=== PATIENT | male | born 1960 | race Caucasian/White ===

== ENCOUNTER → 2016-09-12 | Outpatient (CLI) | payer OTHER ==
[~2016-09-12] MED LIST: ALTA10CA10 PO; ASPI81TA5 PO; CHOL1CAP2 PO; CLON.5 PO; GUAI600T11 PO; METO50TA PO; NIAS1000 PO; OMEG1CAP53 PO; PLAV75TA29 PO; ROSU1TAB6 PO; TRAM50TA PO; VYTO10TA8 PO
[2016-09-12 11:27] LABS: BASOPHIL % 0.7 % (0.0-2.0); EOSINOPHIL # 0.3 TH/MM3 (0-0.4); EOSINOPHIL % 4.1 % (0.0-4.0); HEMATOCRIT 44.8 % (39.0-51.0); HEMO FLAGS DIFF FINAL; LYMPH % 25.7 % (9.0-44.0); LYMPHOCYTE # 1.6 TH/MM3 (1.0-4.8); MEAN CELL VOLUME 89.5 FL (80.0-100.0); MEAN CORPUSCULAR HEMOGLOBIN 30.5 PG (27.0-34.0); MEAN CORPUSCULAR HGB CONC 34.1 % (32.0-36.0); MONO % 8.3 % (0.0-8.0); NEUT % 61.2 % (16.0-70.0); PLATELET COUNT 177 TH/MM3 (150-450); RED BLOOD COUNT 5.01 MIL/MM3 (4.50-5.90); RED CELL DISTRIBUTION WIDTH 11.8 % (11.6-17.2); WHITE BLOOD COUNT 6.4 TH/MM3 (4.0-11.0)
== END ==
LOC: PHPRE 10:54
PROVIDERS: ATTEND Orthopaedic Surgery
DX: Z01.810 Encounter for preprocedural cardiovascular examination (principal); Z01.812 Encounter for preprocedural laboratory examination; S83.242A Other tear of medial meniscus, current injury, left knee, initial encounter; X58.XXXA Exposure to other specified factors, initial encounter
CPT/HCPCS: 36415; 85025

== ENCOUNTER → 2016-09-15 | Day surgery (SDC) | payer OTHER ==
[~2016-09-15] VITALS: Ht 188 cm; Wt 135.0 kg
[~2016-09-15] MED LIST changes: +BUPIVACAINE/EPINEPHRINE 0.5% PF 30 ML VIAL ONE; +CHLORHEXIDINE GLUCONATE 2 % 1 PACK (2 CLOTHS) TOPICAL PRN; +FAMOTIDINE 20 MG/2 ML VIAL ONE; +INSULIN HUMAN REGULAR 1,000 UNITS/10 ML VIAL SQ PRN; +LACTATED RINGER'S 1000 ML IV PRN; +METOCLOPRAMIDE HCL 10 MG/2 ML VIAL ONE; +METOPROLOL TARTRATE 25 MG TAB PO PRN; +MIDAZOLAM HCL 2 MG/2 ML VIAL ONE; +MORPHINE SULFATE 4 MG/ML INJ ONE; +ONDANSETRON HCL 4 MG/2 ML VIAL IV PUSH ONE; +ONDANSETRON HCL 4 MG/2 ML VIAL ONE; +POVIDONE IODINE 5% (ANTISEPSIS KIT) 4 APPLICATIONS EACH NARE PRN; +PROPOFOL 200 MG/20 ML AMP IV ONE; +SODIUM CHLORID 0.9% 500 ML IV PRN; +TRIAMCINOLONE ACETONIDE 40 MG/ML VIAL ONE
[2016-09-15 06:54] VITALS: BP 141/90; PULSE 55; RESP 18; TEMP 97.7; O2SAT 97
[2016-09-15 08:42] VITALS: PULSE 73
[2016-09-15 09:45] VITALS: BP 149/80; PULSE 63; RESP 16; TEMP 97.3; O2SAT 95
--- NOTE | 2016-09-17 06:27 | MP ---
cc: BERHANE HUSSEIN M.D. DATE OF SURGERY: 09/15/2016 PREOPERATIVE DIAGNOSIS: Tear medial meniscus left knee joint. POSTOPERATIVE DIAGNOSIS Tear medial meniscus left knee joint. PROCEDURE Arthroscopic subtotal medial meniscectomy. ANESTHESIA: General. SURGEON: Dr. Berhane Hussein DETAILS OF PROCEDURE: The patient was placed on the operating table in the supine position. Adequate general anesthesia was administered by the anesthesiologist. The patient's left knee was then prepped and draped in the usual sterile fashion. Time-out was called and the patient's name, procedure, location, etc., were fully confirmed. An Esmarch bandage was used to exsanguinate the left lower extremity and a pneumatic tourniquet was inflated to 300. An anterolateral portal was used for introduction of the double cannula was then resulted in distension of the joint with lactated Ringer's solution. A systematic examination of the knee joint revealed minimal erosive changes of the patellofemoral joint with no significant arthritis. There was a small amount of clear yellow fluid within the joint on entry. The intercondylar area was then checked and the cruciate ligaments did appear to be intact although the ACL was somewhat frayed. The medial compartment was entered and we immediately encountered a large posterior horn, middle one third tear with a large flap moving within the joint space. The spinal needle was inserted followed by the puncture wound followed by the instrumentation. A combination of instruments were used to remove the torn area of the medial meniscus. Motorized instruments were utilized along with hand instruments. All loose fragments were removed and the meniscus balanced with the shaver. Attention was then turned to the lateral compartment which was found to be unremarkable. The joint was thoroughly irrigated and all instruments were then removed. The two stab wounds were closed with simple 3-0 nylon. The sponge count, needle count and instrument counts were reported correct x2. The estimated blood loss was nil. The patient tolerated this procedure well and without complications. Berhane Hussein MD [facility] /8:39 AM /6:26 AM
== END | disposition home or self-care (01) ==
LOC: PHSDC 06:14
PROVIDERS: ATTEND Orthopaedic Surgery
DX: M23.222 Derangement of posterior horn of medial meniscus due to old tear or injury, left knee (principal); Z88.0 Allergy status to penicillin
CPT/HCPCS: 01400; 29881; J2250; J2270; J2405; J2765; J3010; J7120; J3301